=== PATIENT | female | born 1950 | race Hispanic/Latino ===

== ENCOUNTER → 2017-12-26 | Outpatient (CLI) | payer OTHER | END | disposition home or self-care (01) | LOC: SHCH 13:59 | PROVIDERS: ATTEND Internal Medicine Cardiovascular Disease | DX: R07.9 Chest pain, unspecified (principal) | CPT/HCPCS: 93306 ==

== ENCOUNTER → 2018-01-15 | Outpatient (CLI) | payer OTHER | END | disposition home or self-care (01) | LOC: OIH 15:07 | PROVIDERS: ATTEND Internal Medicine Cardiovascular Disease | DX: Z13.6 Encounter for screening for cardiovascular disorders (principal) | CPT/HCPCS: 75571 ==

== ENCOUNTER → 2023-04-10 | Outpatient (CLI) | payer MEDICARE | END | disposition home or self-care (01) | LOC: SHCH 10:57 | PROVIDERS: ATTEND Internal Medicine Cardiovascular Disease | DX: R60.9 Edema, unspecified (principal) | CPT/HCPCS: 93970 ==

== ENCOUNTER → 2023-04-11 | Outpatient (CLI) | payer OTHER | END | disposition home or self-care (01) | LOC: OIH 13:45 | PROVIDERS: ATTEND Internal Medicine Cardiovascular Disease | DX: Z13.6 Encounter for screening for cardiovascular disorders (principal) | CPT/HCPCS: 75571 ==

== ENCOUNTER → 2024-09-29 | Outpatient (CLI) | payer MEDICARE ==
--- NOTE | 2024-09-29 14:17 | HMCIMG ---
LUMBAR W FLEXION/EXTENSION REASON: HX OF FALL, VERTEBRA GENIC LOW BACK PAIN. COMPARISON: None TECHNIQUE: 4 images of lumbar spine were obtained including flexion and extension views. FINDINGS: No loss of vertebral height is seen. Mild degenerative changes are seen. IMPRESSION: Findings as described above.
--- NOTE | 2024-09-29 14:18 | HMCIMG ---
HIP BILAT 5VW REASON: HX OF FALL, LEFT HIP PAIN. COMPARISON: None TECHNIQUE: 6 images of bilateral hips were obtained. FINDINGS: Bilateral hip joint space narrowing is seen. There is no acute displaced fracture or dislocation. IMPRESSION: Findings as described above.
== END | disposition home or self-care (01) ==
LOC: RAH 10:53
PROVIDERS: ATTEND Physician Assistant
DX: M47.26 Other spondylosis with radiculopathy, lumbar region (principal); M25.552 Pain in left hip; M99.05 Segmental and somatic dysfunction of pelvic region; M54.51 Vertebrogenic low back pain; Z91.81 History of falling
CPT/HCPCS: 72114; 73523

== ENCOUNTER → 2024-10-18 | Outpatient (CLI) | payer MEDICARE ==
--- NOTE | 2024-10-20 12:26 | HMCSR ---
APPROVED REPORT Laterality: Bilateral Indications i25.10 Surgery/Intervention Carotid Stent: left Doppler Spectral Velocity Analysis PSV / EDVPSV / EDV ECA (R) 94 / cm/sECA (L) 145 / cm/s dICA (R) 65 / 24 cm/sdICA (L) 36 / 15 cm/s Jose Guadalupe (R) 68 / 24 cm/smICA (L) 51 / 20 cm/s pICA (R) 50 / 18 cm/spICA (L) 37 / 12 cm/s dCCA (R) 70 / 14 cm/sdCCA (L) 68 / 19 cm/s mCCA (R) 110 / 27 cm/smCCA (L) 87 / 24 cm/s pCCA (R) 74 / 17 cm/spCCA (L) 92 / 24 cm/s Vert (R) 37 / cm/sVert (L) 37 / cm/s Subl. (R) 137 / cm/sSubl. (L) 141 / cm/s ICA/CCA 0.62ICA/CCA 0.55 Technologist Impression Mild plaque noted in the bilateral carotids, without hemodynamic significance. Bilateral vertebral arteries appear antegrade. Left ICA shows evidence of a patent stent without stenosis. Conclusion As above. Conclusion As above.
== END | disposition home or self-care (01) ==
LOC: SHCH 15:08
PROVIDERS: ATTEND Internal Medicine Cardiovascular Disease
DX: I65.23 Occlusion and stenosis of bilateral carotid arteries (principal); I25.10 Atherosclerotic heart disease of native coronary artery without angina pectoris
CPT/HCPCS: 93880